=== PATIENT | female | born 1995 | race Hispanic/Latino ===

== ENCOUNTER 2020-11-02 23:21 | Inpatient (IN) | payer BC ==
[~2020-11-02] VITALS: Ht 167.6 cm; Wt 111.1 kg
[2020-11-02] MEDS ORDERED: SODIUM CHLORIDE 0.9% 1000ML 1,000 ML IV STA (23:25)
[2020-11-02 23:51] LABS: BASOPHILS # (AUTO) 0.1 (0.0-0.1); BASOPHILS % 0.7 % (0.0-1.0); EOSINOPHILS % 0.2 % (0.0-6.0); HEMATOCRIT 42.5 % (34.2-44.1); HEMOGLOBIN 14.9 g/dL (12.0-16.0); LYMPHOCYTES # (AUTO) 1.9 (1.0-3.2); LYMPHOCYTES % 16.9 % (18.0-39.1); MEAN CORPUSCULAR HEMOGLOBIN 28.9 pg (28-32); MEAN CORPUSCULAR HGB CONC 35.1 g/dL (31-35); MEAN CORPUSCULAR VOLUME 82.4 fL (81-99); MONOCYTES # (AUTO) 0.9 (0.2-0.8); MONOCYTES % 7.5 % (4.4-11.3); NEUTROPHILS # (AUTO) 8.3 (2.1-6.9); NEUTROPHILS % 73.5 % (38.7-80.0); PLATELET COUNT 225 x10e3/uL (140-360); RED BLOOD COUNT 5.16 x10e6/uL (3.6-5.1); RED CELL DISTRIBUTION WIDTH 15.2 % (11.7-14.4)
[2020-11-03] VITALS (19 sets, daily range): BP systolic 114–160; BP diastolic 65–117
[2020-11-03] MEDS ORDERED: DEXTROSE 5%/0.45% SOD CHL 1,000 ML IV SCH
[2020-11-03] MEDS ORDERED: POTASSIUM CHLORIDE 20MEQ/100ML 200 ML IV PRN
[2020-11-03] MEDS ORDERED: MAGNESIUM SULF 1GRAM/DEXTROSE 100 ML IV PRN
[2020-11-03] MEDS ORDERED: SODIUM CHLORIDE 0.9% 1000ML 1,000 ML IV SCH
[2020-11-03 00:05] LABS: ALBUMIN/GLOBULIN RATIO 1.1 (0.8-2.0); ANION GAP 24.8 mmol/L (8-16); CALCIUM 8.9 mg/dL (8.4-10.2); CREATININE, SERUM 1.28 mg/dL (0.57-1.11)
[2020-11-03 00:08] LABS: ABG HCO3 6 mmol/L (22-26); ABG PCO2 15 mmHg (35-45); ABG PH 7.21 (7.35-7.45); ABG PO2 124 mmHg (80-105); ABG TCO2 6
[2020-11-03 00:09] LABS: POTASSIUM 2.8 mmol/L (3.5-5.1)
[2020-11-03] MEDS ORDERED: POTASSIUM CHLORIDE 10MEQ EA PO STA (00:09)
[2020-11-03] MEDS ORDERED: ASPIRIN 81 MG CHEW TAB PO ONE (00:15)
[2020-11-03] MEDS ORDERED: POTASSIUM CHLORIDE 20MEQ/100ML 100 ML IV ONE (00:15)
[2020-11-03 00:57] LABS: CLARITY,URINE CLOUDY (CLEAR); COLOR,URINE RED (YELLOW)
[2020-11-03 00:58] LABS: KETONES,URINE >=160 (NEGATIVE); LEUKOCYTE ESTERASE ,URINE NEGATIVE (NEGATIVE); NITRITE,URINE NEGATIVE (NEGATIVE); PROTEIN,URINE DIPSTICK 2+ (NEGATIVE); URINE UROBILINOGEN 0.2 mg/dL (0.2 - 1); WBC,URINE (MAN) >50 /HPF (0-5)
[2020-11-03 00:59] LABS: BACTERIA,URINE MODERATE /HPF; EPITHELIAL CELLS,URINE FEW /LPF; RBC,URINE >50 /HPF (0-5)
[2020-11-03] MEDS: INSULIN REGULAR, HUMAN 3ML VL 100 UNIT in SODIUM CHLORIDE 0.9% 100 ML IV SCH ×4 (00:59→12:38)
[2020-11-03 01:04] LABS: CREATINE KINASE MB 2.5 ng/mL (0-5.0)
[2020-11-03 06:34] LABS: ANION GAP 20.9 mmol/L (8-16); BLOOD UREA NITROGEN 10 mg/dL (7-26); BUN/CREATININE RATIO 11 (6-25); CALCIUM 8.2 mg/dL (8.4-10.2); CHLORIDE 114 mmol/L (98-107); CREATININE, SERUM 0.89 mg/dL (0.57-1.11); EST GLOMERULAR FILTRATION RATE > 60 ML/MIN (60-); GLUCOSE 65 mg/dL (74-118); SODIUM 140 mmol/L (136-145)
[2020-11-03 06:40] LABS: POTASSIUM 2.9 mmol/L (3.5-5.1)
[2020-11-03 06:41] LABS: CARBON DIOXIDE 8 mmol/L (22-29)
[2020-11-03] MEDS ORDERED: MAGNESIUM HYDROXIDE 30 ML UDC PO PRN (07:15)
[2020-11-03] MEDS ORDERED: CEFTRIAXONE SOD 1 GM/50 ML BAG IV SCH (07:15)
[2020-11-03] MEDS ORDERED: HYDRALAZINE HCL 20 MG/ML VIAL IV PRN (07:15)
[2020-11-03] MEDS ORDERED: CEFTRIAXONE SOD 1 GM 50 ML IV SCH (07:30)
[2020-11-03] MEDS ORDERED: POTASSIUM CHLORIDE 20MEQ/100ML 200 ML IV ONE (07:45)
[2020-11-03] MEDS ORDERED: KCL 40MEQ/0.9% SOD CHL 1,000 ML IV ONE (07:45)
[2020-11-03] MEDS ORDERED: POLYETHYLENE GLYCOL 3350 17 GM PACK PO ONE (08:30)
[2020-11-03 09:05] LABS: THYROID STIMULATING HORMONE 0.42 uIU/mL (0.350-4.940)
[2020-11-03 09:35] LABS: CREATINE KINASE MB 2.1 ng/mL (0-5.0)
[2020-11-03] MEDS: CEFTRIAXONE SOD 1 GM in SODIUM CHLORIDE 0.9% 50ML 50 ML IV SCH (09:57)
[2020-11-03] MEDS: DOCUSATE SODIUM 100 MG CAP PO SCH ×2 (09:57→19:29)
[2020-11-03] MEDS ORDERED: ACETAMINOPHEN 325 MG TAB PO PRN (10:30)
[2020-11-03] MEDS ORDERED: CITRATE OF MAGNESIA 300ML BOTTLE PO ONE (15:30)
[2020-11-03] MEDS ORDERED: DEXTROSE 50% SYRINGE 50 ML IV PRN (16:45)
[2020-11-03] MEDS ORDERED: INSULIN REGULAR, HUMAN 3ML VL 100 UNIT in SODIUM CHLORIDE 0.9% 99 ML IV SCH ×2 (16:45)
[2020-11-03 17:42] LABS: BLOOD UREA NITROGEN 8 mg/dL (7-26); BUN/CREATININE RATIO 9 (6-25); CALCIUM 8.2 mg/dL (8.4-10.2); CARBON DIOXIDE 11 mmol/L (22-29); CHLORIDE 113 mmol/L (98-107); CREATININE, SERUM 0.93 mg/dL (0.57-1.11); EST GLOMERULAR FILTRATION RATE > 60 ML/MIN (60-); GLUCOSE 233 mg/dL (74-118); MAGNESIUM 2.5 MG/DL (1.3-2.1); SODIUM 137 mmol/L (136-145)
[2020-11-03 17:46] LABS: CREATINE KINASE MB 1.9 ng/mL (0-5.0)
[2020-11-03] MEDS ORDERED: SOD PHOSPHATE/SOD BIPHOSPHATE ENEMA 132 ML BTL PR ONE ×2 (18:59→19:00)
[2020-11-03] MEDS ORDERED: DEXTROSE 5%/0.9% SOD CHL 1,000 ML IV ONE (20:12)
[2020-11-03] MEDS ORDERED: POTASSIUM CHLORIDE 20MEQ/100ML 100 ML ONE (20:12)
[2020-11-03] MEDS: D5NS/KCL 20MEQ 1,000 ML IV SCH (20:15)
[2020-11-03] MEDS ORDERED: INSULIN GLARGINE 100 UNITS/ML VIAL SQ SCH (21:00)
[2020-11-03 21:49] LABS: FREE T4 (FREE THYROXINE) 1.09 ng/dL (0.8-1.8); THYROID STIMULATING HORMONE 0.342 uIU/mL (0.350-4.940)
[2020-11-04] VITALS (23 sets, daily range): BP systolic 100–134; BP diastolic 52–88
[2020-11-04 05:09] LABS: BASOPHILS % 0.5 % (0.0-1.0); EOSINOPHILS # (AUTO) 0.1 (0.0-0.4); HEMATOCRIT 35.4 % (34.2-44.1); HEMOGLOBIN 12.7 g/dL (12.0-16.0); LYMPHOCYTES # (AUTO) 2.8 (1.0-3.2); LYMPHOCYTES % 35.2 % (18.0-39.1); MEAN CORPUSCULAR HEMOGLOBIN 29.1 pg (28-32); MEAN CORPUSCULAR HGB CONC 35.9 g/dL (31-35); MONOCYTES # (AUTO) 0.9 (0.2-0.8); MONOCYTES % 11.1 % (4.4-11.3); NEUTROPHILS # (AUTO) 4.1 (2.1-6.9); NEUTROPHILS % 51.6 % (38.7-80.0); PLATELET COUNT 170 x10e3/uL (140-360); RED BLOOD COUNT 4.37 x10e6/uL (3.6-5.1); RED CELL DISTRIBUTION WIDTH 15.7 % (11.7-14.4)
[2020-11-04] MEDS ORDERED: DEXTROSE 5%/0.9% SOD CHL 1,000 ML IV ONE (05:13)
[2020-11-04] MEDS ORDERED: POTASSIUM CHLORIDE 20MEQ/100ML 100 ML ONE (05:13)
[2020-11-04] MEDS: D5NS/KCL 20MEQ 1,000 ML IV SCH ×2 (05:26→14:15)
[2020-11-04 05:30] LABS: ALANINE AMINOTRANSFERASE 76 IU/L (0-55); ALBUMIN 3.3 g/dL (3.5-5.0); ALBUMIN/GLOBULIN RATIO 1.2 (0.8-2.0); ALKALINE PHOSPHATASE 109 IU/L (40-150); ANION GAP 14.6 mmol/L (8-16); BLOOD UREA NITROGEN < 5 mg/dL (7-26); CALCIUM 7.8 mg/dL (8.4-10.2); CARBON DIOXIDE 16 mmol/L (22-29); CHLORIDE 113 mmol/L (98-107); EST GLOMERULAR FILTRATION RATE > 60 ML/MIN (60-); GLUCOSE 139 mg/dL (74-118); SODIUM 141 mmol/L (136-145)
[2020-11-04 05:32] LABS: BUN/CREATININE RATIO 7 (6-25)
[2020-11-04 05:33] LABS: POTASSIUM 2.6 mmol/L (3.5-5.1)
[2020-11-04] MEDS ORDERED: POTASSIUM CHLORIDE 20MEQ/100ML 200 ML ONE (05:46)
[2020-11-04 05:55] LABS: MAGNESIUM 2.6 MG/DL (1.3-2.1)
[2020-11-04 06:44] LABS: PHOSPHORUS < 0.7 MG/DL (2.3-4.7)
[2020-11-04] MEDS: DOCUSATE SODIUM 100 MG CAP PO SCH ×2 (09:09→17:22)
[2020-11-04] MEDS: CEFTRIAXONE SOD 1 GM in SODIUM CHLORIDE 0.9% 50ML 50 ML IV SCH (09:23)
[2020-11-04] MEDS: INSULIN LISPRO 100 UNIT/1 ML 3ML VIAL SQ SCH ×3 (17:21→21:00)
[2020-11-04] MEDS: POTASSIUM CHLORIDE 40 MEQ in DEXTROSE 5%/0.9% SOD CHL 1,000 ML IV SCH (20:50)
[2020-11-04] MEDS ORDERED: INSULIN GLARGINE 100 UNITS/ML VIAL SQ SCH (21:00)
[2020-11-05] VITALS (10 sets, daily range): BP systolic 101–134; BP diastolic 55–83
[2020-11-05 04:55] LABS: BASOPHILS # (AUTO) 0.1 (0.0-0.1); BASOPHILS % 1.1 % (0.0-1.0); EOSINOPHILS # (AUTO) 0.1 (0.0-0.4); EOSINOPHILS % 1.6 % (0.0-6.0); HEMATOCRIT 38.5 % (34.2-44.1); HEMOGLOBIN 13.6 g/dL (12.0-16.0); LYMPHOCYTES # (AUTO) 3.1 (1.0-3.2); LYMPHOCYTES % 56.1 % (18.0-39.1); MEAN CORPUSCULAR HEMOGLOBIN 29.1 pg (28-32); MEAN CORPUSCULAR HGB CONC 35.3 g/dL (31-35); MEAN CORPUSCULAR VOLUME 82.4 fL (81-99); MONOCYTES # (AUTO) 0.5 (0.2-0.8); MONOCYTES % 8.6 % (4.4-11.3); NEUTROPHILS # (AUTO) 1.7 (2.1-6.9); NEUTROPHILS % 31.5 % (38.7-80.0); PLATELET COUNT 120 x10e3/uL (140-360); RED BLOOD COUNT 4.67 x10e6/uL (3.6-5.1); RED CELL DISTRIBUTION WIDTH 16.8 % (11.7-14.4)
[2020-11-05 05:15] LABS: ALANINE AMINOTRANSFERASE 81 IU/L (0-55); ALBUMIN 3.1 g/dL (3.5-5.0); ALBUMIN/GLOBULIN RATIO 1.1 (0.8-2.0); ALKALINE PHOSPHATASE 106 IU/L (40-150); BLOOD UREA NITROGEN < 5 mg/dL (7-26); CALCIUM 7.9 mg/dL (8.4-10.2); CARBON DIOXIDE 20 mmol/L (22-29); CHLORIDE 111 mmol/L (98-107); EST GLOMERULAR FILTRATION RATE > 60 ML/MIN (60-); GLUCOSE 218 mg/dL (74-118); SODIUM 142 mmol/L (136-145)
[2020-11-05 05:20] LABS: BUN/CREATININE RATIO 7 (6-25)
[2020-11-05] MEDS: INSULIN LISPRO 100 UNIT/1 ML 3ML VIAL SQ SCH ×7 (08:00→21:02)
[2020-11-05] MEDS: DOCUSATE SODIUM 100 MG CAP PO SCH ×2 (08:47→16:39)
[2020-11-05] MEDS: POTASSIUM CHLORIDE 40 MEQ in DEXTROSE 5%/0.9% SOD CHL 1,000 ML IV SCH (09:08)
[2020-11-05] MEDS: CEFTRIAXONE SOD 1 GM in SODIUM CHLORIDE 0.9% 50ML 50 ML IV SCH (09:24)
[2020-11-05] MEDS: INSULIN GLARGINE 100 UNITS/ML VIAL SQ SCH (21:03)
[2020-11-06] VITALS (7 sets, daily range): BP systolic 116–132; BP diastolic 54–86
[2020-11-06] MEDS ORDERED: SODIUM CHLORIDE 0.9% 1000ML 1,000 ML ONE (00:05)
[2020-11-06 07:25] LABS: BASOPHILS # (AUTO) 0.1 (0.0-0.1); EOSINOPHILS # (AUTO) 0.1 (0.0-0.4); EOSINOPHILS % 1.4 % (0.0-6.0); HEMATOCRIT 39.2 % (34.2-44.1); HEMOGLOBIN 13.8 g/dL (12.0-16.0); LYMPHOCYTES # (AUTO) 2.8 (1.0-3.2); LYMPHOCYTES % 53.4 % (18.0-39.1); MEAN CORPUSCULAR HEMOGLOBIN 29.2 pg (28-32); MEAN CORPUSCULAR HGB CONC 35.2 g/dL (31-35); MEAN CORPUSCULAR VOLUME 83.1 fL (81-99); MONOCYTES # (AUTO) 0.5 (0.2-0.8); MONOCYTES % 9.9 % (4.4-11.3); NEUTROPHILS # (AUTO) 1.7 (2.1-6.9); NEUTROPHILS % 33.3 % (38.7-80.0); PLATELET COUNT 165 x10e3/uL (140-360); RED BLOOD COUNT 4.72 x10e6/uL (3.6-5.1); RED CELL DISTRIBUTION WIDTH 17.4 % (11.7-14.4)
[2020-11-06 07:46] LABS: ALANINE AMINOTRANSFERASE 118 IU/L (0-55); ALKALINE PHOSPHATASE 108 IU/L (40-150); ANION GAP 14.6 mmol/L (8-16); BLOOD UREA NITROGEN < 5 mg/dL (7-26); CARBON DIOXIDE 23 mmol/L (22-29); CHLORIDE 107 mmol/L (98-107); CREATININE, SERUM 0.59 mg/dL (0.57-1.11); EST GLOMERULAR FILTRATION RATE > 60 ML/MIN (60-); GLUCOSE 170 mg/dL (74-118); SODIUM 142 mmol/L (136-145)
[2020-11-06 07:47] LABS: BUN/CREATININE RATIO 8 (6-25)
[2020-11-06 07:48] LABS: POTASSIUM 2.6 mmol/L (3.5-5.1)
[2020-11-06] MEDS: INSULIN LISPRO 100 UNIT/1 ML 3ML VIAL SQ SCH ×7 (08:25→19:54)
[2020-11-06] MEDS ORDERED: POTASSIUM CHLORIDE 10MEQ EA PO ONE (08:50)
[2020-11-06] MEDS: DOCUSATE SODIUM 100 MG CAP PO SCH (10:40)
[2020-11-06] MEDS: CEFTRIAXONE SOD 1 GM in SODIUM CHLORIDE 0.9% 50ML 50 ML IV SCH (10:40)
[2020-11-06] MEDS ORDERED: POTASSIUM CHLORIDE 20MEQ/100ML 100 ML IV ONE (14:15)
[2020-11-06] MEDS: INSULIN GLARGINE 100 UNITS/ML VIAL SQ SCH (19:55)
== END 2020-11-06 21:14 | disposition home or self-care (01) | DRG 638 ==
LOC: ER 23:26 → ERHOLD 11-03 00:20 → ICU 11-03 02:05 → IMCU 11-05 14:00
PROVIDERS: ADMIT Internal Medicine Cardiovascular Disease; ATTEND Internal Medicine Cardiovascular Disease
DX: E11.10 Type 2 diabetes mellitus with ketoacidosis without coma (principal); N39.0 Urinary tract infection, site not specified; E83.51 Hypocalcemia; E28.2 Polycystic ovarian syndrome; E87.6 Hypokalemia; Z68.39 Body mass index [BMI] 39.0-39.9, adult; Z20.822 Contact with and (suspected) exposure to COVID-19
CPT/HCPCS: 36415; 36600; 71045; 80048; 80053; 81001; 81025; 82550; 82553; 82805; 82948; 83036; 83690; 83735; 83880; 84100; 84132; 84436; 84439; 84443; 84479; 84484; 85025; 96372; 99284; J0696; J1815; J1817; J3480; J7030; J7042; J7050; U0002